=== PATIENT | male | born 1980 | race Caucasian/White ===

== ENCOUNTER 2016-08-10 06:58 | Emergency (ER) | payer BC ==
[2016-08-10] MEDS ORDERED: KETOROLAC 30 MG/ML VIAL ONE (07:39)
== END 2016-08-10 08:44 | disposition home or self-care (01) ==
LOC: ER 06:58
DX: N13.2 Hydronephrosis with renal and ureteral calculous obstruction (principal)
CPT/HCPCS: 36415; 74176; 80053; 81001; 83690; 85025; 96374